=== PATIENT | male | born 1995 | race Caucasian/White ===

== ENCOUNTER 2024-09-26 18:33 | Emergency (ER) | payer MEDICAID, SELFPAY ==
[2024-09-26 18:34] VITALS: BP 138/87; PULSE 94; RESP 12; TEMP 36.9; O2SAT 97
--- NOTE | 2024-09-26 20:52 | ED.GENADUL_ITS ---
Discharge Plan Disposition Patient Disposition: Home Condition: Stable Discharge Details Clinical Impression: Skin breakdown Primary Care Provider: Unknown,Unknown ED Provider: Vonnie Galvez Home Meds and New Rx's Prescriptions: No Action No Known Home Meds Discharge Instructions Instructions: Pressure sores Additional Instructions: * Continue the barrier cream as provided. * Keep area dry as possible by utilizing things like Goldbond powder Discharge Data Discharge Date/Time-TO BE ENTERED AT DEPARTURE: 09/26/24 19:37 HPI General Date/Time Provider Initiated Documentation: 09/26/24 19:30 . Limitations to Documentation: no limitations . Information obtained by: patient . HPI Narrative: 29-year-old gentleman without significant past medical history presents for evaluation of 1 week of cysts skin issue on his left butt cheek. He thinks that it might be infected. He states it has been draining clear fluid. It hurts a little bit. He denies history of skin infections. Related Data Home Medications ?Medication ?Instructions ?Recorded ?Confirmed Unknown [No Known Home Meds] 09/26/24 09/26/24 Allergies Allergy/AdvReac Type Severity Reaction Status Date / Time Sulfa (Sulfonamide AdvReac Intermediate Skin Rash Verified 09/26/24 18:37 Antibiotics) General Stated Complaint: RashLesion GAYLE: 4 Exam Narrative Exam Narrative: Review of Systems: All systems reviewed & are unremarkable except as noted in HPI and below Well-developed, no acute distress NCAT left gluteal cheek with contact lesion, where skin of glut and thigh rub together, no abscess or induration, no cellulitis Course Vital Signs Vital signs: Vital Signs Temperature 36.9 C 09/26/24 18:34 Pulse 94 H 09/26/24 18:34 Respiratory Rate 12 09/26/24 18:34 Blood Pressure 138/87 09/26/24 18:34 Pulse Oximetry 97 09/26/24 18:34 Temperature 36.9 C 09/26/24 18:34 Pulse 94 H 09/26/24 18:34 Respiratory Rate 12 11/05/24 18:34 Respiratory Effort Normal 09/26/24 19:17 Blood Pressure 138/87 09/26/24 18:34 Blood Pressure Position Sitting 09/26/24 18:34 Pulse Oximetry 97 09/26/24 18:34 Oxygen Delivery Method Room Air 09/26/24 18:34 Oxygen Flow Rate 0 09/26/24 18:34 Pain Level 10 09/26/24 18:34 Medical Decision Making Evaluation of skin lesion. On examination, there are no signs of abscess or cellulitis, this lesion appears more consistent with some skin breakdown from contact or moisture. I am recommending good hygiene and barrier cream which she was provided. Recommend to make sure that this area stays dry and that he does not scratch or pick at the area. He can use Goldbond powder. If he develops any redness pain fever, he should get reevaluated but at this time there is no signs of infection Quality:SDOH Health Related Social Needs: No Data to Display PFSH All Active Problems Skin breakdown (Acute) Social History Smoking/Tobacco Use Status: Current-Occasional Tobacco Type: cigarettes and e- cigarettes Smoking risk assessment performed?: Yes Alcohol Intake: never Drug use: Daily Substance use type: marijuana Housing: house Do you feel safe at home: Yes Do you feel safe in your relationship?: Yes
== END 2024-09-26 19:37 | disposition home or self-care (01) ==
LOC: ER 19:43
PROVIDERS: Emergency Provider Emergency Medicine
DX: M79.9 Soft tissue disorder, unspecified (principal); F17.210 Nicotine dependence, cigarettes, uncomplicated; F17.290 Nicotine dependence, other tobacco product, uncomplicated
CPT/HCPCS: 99283

== ENCOUNTER 2024-10-10 19:31 | Emergency (ER) | payer MEDICAID, SELFPAY ==
[2024-10-10 19:38] VITALS: BP 158/98; PULSE 96; RESP 18; TEMP 36.4; O2SAT 99
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
[2024-10-10] MEDS: Lidocaine 5% Patch 1 PATCH TP (20:35)
[2024-10-10] MEDS: Acetaminophen 500 MG TAB 1000 MG PO (20:35)
[2024-10-10] MEDS: Cyclobenzaprine 10 MG TAB PO (20:35)
[2024-10-10] MEDS: Ketorolac 10 MG TAB PO (20:35)
== END 2024-10-10 20:41 | disposition home or self-care (01) ==
PROVIDERS: Emergency Provider Physician Assistant
DX: M54.50 Low back pain, unspecified (principal); E11.9 Type 2 diabetes mellitus without complications; I10 Essential (primary) hypertension; F17.210 Nicotine dependence, cigarettes, uncomplicated; F17.290 Nicotine dependence, other tobacco product, uncomplicated; Z79.84 Long term (current) use of oral hypoglycemic drugs
CPT/HCPCS: 99283

== ENCOUNTER 2024-12-06 00:10 | Emergency (ER) | payer MEDICAID, SELFPAY ==
[2024-12-06 00:14] VITALS: BP 156/96; PULSE 67; RESP 16; TEMP 36.2; O2SAT 98
--- NOTE | 2024-12-06 01:21 | ED.GENADUL_ITS ---
Discharge Plan Disposition Patient Disposition: Home Condition: Good Discharge Details Clinical Impression: Abscess of neck Primary Care Provider: Unknown,Unknown ED Provider: Gordon Estes Home Meds and New Rx's Prescriptions: New clindamycin HCl 150 mg capsule 450 mg PO Q6H 7 Days Qty: 84 0RF Discharge Instructions Instructions: Skin Abscess Additional Instructions: At this time you have a small abscess on the back of your neck. We were able to get out a significant amount of fluid. Please take the antibiotic as directed. The full prescription has been sent to your pharmacy on file. Please make sure to be taking this with a probiotic to help reduce the risk of diarrhea. If you notice any worsening of your symptoms, or any new symptoms such as vomiting, little rrhea, fever, chills, shortness of breath, chest pain, numbness, weakness, or fainting , please return immediately to the emergency department for reevaluation. Please follow up with your primary care provider as soon as possible for reassessment and reevaluation. As always, it was a pleasure participating in your medical care today. HPI General Date/Time Provider Initiated Documentation: 12/06/24 00:15 . HPI Narrative: 29-year-old male presents today for lesion on his neck. States it has been present for the last few days, it is mildly tender and painful. No drainage. He denies fever or chills. He denies headache numbness tingling or weakness. Lesion is on the posterior aspect of his neck, he states that he has had zits like this before that if needed to be drained. No other modifying factors or complaints. Related Data Home Medications ?Medication ?Instructions ?Recorded ?Confirmed clindamycin HCl 150 mg capsule 450 mg (3 x 150 mg) PO Q6H 7 days 12/06/24 #84 caps Previous Rx's ?Medication ?Instructions ?Recorded clindamycin HCl 150 mg capsule 450 mg (3 x 150 mg) PO Q6H 7 days 12/06/24 #84 caps Allergies Allergy/AdvReac Type Severity Reaction Status Date / Time Sulfa (Sulfonamide AdvReac Intermediate Skin Rash Verified 12/06/24 00:13 Antibiotics) General Stated Complaint: RashLesion GAYLE: 4 Exam Narrative Exam Narrative: 1.Const: Well-nourished, Well-developed, appearing stated age 2.Eyes: PERRL, no conjunctival injection, and symmetrical lids. 3.ENT: Atraumatic external nose and ears. Moist MM. Neck: Symmetric, trachea midline, No thyromegaly. 4.CVS: +S1/S2, Peripheral pulses 2+ and equal in all extremities. Brisk capillary refill in all extremities. 5.RESP: Unlabored respiratory effort. Clear to auscultation bilaterally. No wheezes rales or rhonchi 6.GI: Soft, Nontender/Nondistended, No hepatosplenomegaly. No guarding or rebound. 7.MSK: Normocephalic/Atraumatic, Extremities w/o deformity or ttp No cyanosis or clubbing, Normal movement of all extremities 8.Skin: Warm, Dry. Small comedone is noted on the patient's neck, fluctuance is noted at the top. Small apical head is noted. Diameter is roughly 1-1/2 cm. Minimal erythema for the lesion itself. 9.Neuro: preparatory technician II-XII grossly intact. Sensation grossly intact, no focal neurologic deficits. 10.Psych: (AAO) x3. Appropriate mood and affect Course Vital Signs Vital signs: Vital Signs Temperature 36.2 C L 12/06/24 00:14 Pulse 67 12/06/24 00:14 Respiratory Rate 16 12/06/24 00:14 Blood Pressure 156/96 H 12/06/24 00:14 Pulse Oximetry 98 12/06/24 00:14 Temperature 36.2 C L 12/06/24 00:14 Temperature Source Temporal Artery Scan 12/06/24 00:14 Pulse 67 12/06/24 00:14 Respiratory Rate 16 12/06/24 00:14 Blood Pressure 156/96 H 12/06/24 00:14 Blood Pressure Position Sitting 12/06/24 00:14 Pulse Oximetry 98 12/06/24 00:14 Oxygen Delivery Method Room Air 12/06/24 00:14 Oxygen Flow Rate 0 12/06/24 00:14 Pain Level 4 12/06/24 00:14 Procedure Abscess Drainage Date of Procedure: 12/06/24 Time of Procedure: 01:54 Provider that performed the procedure: Gordon Bustillo Time Out Performed: Yes Patient Consented: Verbally Location of Exam: Neck/left side (Midline) Indication: Abscess. Local anesthetic: Lidocaine 2%, Amount of Local Anesthetic Used (mL): 4. Sterility: Non Sterile. Procedure Prep: Hand hygiene and Other (18-gauge needle). Technique used, needle aspiration. Amount of fluid expressed(mL): 4. Irrigation: no irrigation Packing: None. Outcome: Sucessful. Medical Decision Making 29-year-old male presents today for lesion on his neck. States it has been present for the last few days, it is mildly tender and painful. No drainage. He denies fever or chills. He denies headache numbness tingling or weakness. Lesion is on the posterior aspect of his neck, he states that he has had zits like this before that if needed to be drained. No other modifying factors or complaints. Physical exam demonstrates a small abscess on the posterior aspect of the neck. No surrounding cellulitis. Area was covered with LMX and then de removed with 18-gauge needle. About 4 cc of purulent fluid were removed. This has been sent for culture. He is given a bottle of clindamycin here and a prescription for home. Discussed red flags for which to return. I have extensively reviewed the treatment plan and discharge instructions with the patient. I have addressed all patient concerns at this time. The patient was made aware of what symptoms to monitor for that would warrant a return to the emergency department. Discussed the plan with the patient, they demonstrate verbal understanding and agreement with our assessment and plan at this time. The documentation in this chart was dictated using [employer] dictation software. Please excuse any dictation errors. Quality:SDOH Health Related Social Needs: No Data to Display PFSH All Active Problems (Updated 12/06/24 @ 01:21 by Gordon Estes DO) Abscess of neck (Acute) Medical History (Updated 12/06/24 @ 01:21 by Gordon Estes DO) Skin mole Hyperlipidemia Type 2 diabetes mellitus Hypertension Surgical History (Updated 10/10/24 @ 19:51 by Hema Carcamo RN) History of esophagogastroduodenoscopy (EGD) History of tonsillectomy and adenoidectomy Social History Smoking/Tobacco Use Status: Current-Occasional Tobacco Type: cigarettes and e- cigarettes Smoking risk assessment performed?: Yes Alcohol Intake: former Drug use: Daily Substance use type: marijuana Housing: house Do you feel safe at home: Yes Do you feel safe in your relationship?: Yes POCUS Exam (ED) Limited Soft Tissue Exam PROVIDER THAT PERFORMED THE STUDY: Gordon Estes
[2024-12-06] MEDS: Clindamycin 150 MG CAP, 12 CAPS/BTL 450 MG PO (01:38)
--- NOTE | 2024-12-07 09:35 | NUR.NOTE ---
Accessed Pt chart to document antibiotics prescribed to Pt for the specimen document
== END 2024-12-06 01:45 | disposition home or self-care (01) ==
PROVIDERS: Emergency Provider Student in an Organized Health Care Education/Training Program
DX: L02.11 Cutaneous abscess of neck (principal); E78.5 Hyperlipidemia, unspecified; E11.9 Type 2 diabetes mellitus without complications; I10 Essential (primary) hypertension; F17.210 Nicotine dependence, cigarettes, uncomplicated; F17.290 Nicotine dependence, other tobacco product, uncomplicated
CPT/HCPCS: 10060; 87077; 99283; 99284; 87070; 87186; 87205

== ENCOUNTER 2025-02-06 21:40 | Outpatient (REF) | payer MEDICAID, SELFPAY ==
[2025-02-06 22:08] LABS: Abs Immature Grans 0.02 10^3/uL (0.0-0.06); Absolute Basophil Count 0.06 10^3/uL (0.0-0.2); Absolute Eosinophil Count 0.29 10^3/uL (0.0-0.7); Absolute Monocyte Count 0.69 10^3/uL (0.1-0.8); Absolute Neutrophil Count 5.06 10^3/uL (1.2-6.7); Basophils % 0.7 %; Eosinophils % 3.3 %; HCT 47.9 % (40.0-50.0); HGB 16.4 g/dL (13.5-17.5); Immature Grans % 0.2 %; Lymphocytes % 31.4 %; MCH 29.4 pg (27.0-33.0); MCHC 34.2 % (32.0-36.0); MCV 86 fL (80-95); MPV 11.6 fL (8.0-11.0); Monocytes % 7.7 %; Neutrophils % 56.7 %; Platelet Count 225 10^3/uL (130-400); RBC 5.57 10^6/uL (4.36-5.78); RDW 11.7 % (11.8-14.1); RDW-SD 36.6 fL; WBC 8.92 10^3/uL (4.4-10.8)
[2025-02-06 22:19] LABS: ALT 34 U/L (16-63); AST 10 U/L (15-37); Alkaline Phosphatase 87 U/L (46-116); Anion Gap 9.3 mmol/L (3-11); BUN 15 mg/dL (7-18); Bilirubin, Total 0.6 mg/dL (0.2-1.0); CO2 28.7 mmol/L (21.0-32.0); CREATININE 0.8 mg/dL (0.70-1.30); Calcium 9.5 mg/dL (8.5-10.1); Chloride 104 mmol/L (98-107); Estimated GFR 121.34 (mL/min/1.73m2); Glucose 281 mg/dL (74-106); Lipase 31 U/L (<78); Potassium 4.2 mmol/L (3.5-5.1); Sodium 142 mmol/L (136-145); Total Protein 7.5 g/dL (6.4-8.2)
[2025-02-06 22:28] LABS: Hemoglobin A1C 9.5 % (<5.7)
== END 2025-02-06 21:41 | disposition home or self-care (01) ==
LOC: LBN 21:40
PROVIDERS: Visit Provider Nurse Practitioner Family
DX: R10.9 Unspecified abdominal pain (principal); E11.9 Type 2 diabetes mellitus without complications
CPT/HCPCS: 80053; 83690; 83036; 85025

== ENCOUNTER 2025-04-09 18:21 | Outpatient (REF) | payer MEDICAID, SELFPAY ==
[2025-04-09 17:46] LABS: Calculated LDL 120 mg/dL (<100); Cholesterol 214 mg/dL (<200); HDL Cholesterol 36 mg/dL (>or=40); Triglyceride 290 mg/dL (<150)
== END 2025-04-09 18:22 | disposition home or self-care (01) ==
LOC: NCHCN 18:21
PROVIDERS: Visit Provider Nurse Practitioner Family
DX: E78.00 Pure hypercholesterolemia, unspecified (principal)
CPT/HCPCS: 80061

== ENCOUNTER 2025-05-11 15:10 | Outpatient (REF) | payer MEDICAID, SELFPAY ==
[2025-05-11 16:38] LABS: COMMENT (LAB VIEW ONLY) 142.11 mg/dL; Microalb ug/mg Crea 56.9 ug/mg Cr
[2025-05-14 09:23] LABS: HIV-1/2 Ag & Ab Screen Negative (Negative)
[2025-05-14 09:29] LABS: Hepatitis C Ab w Rflx HCV PCR Negative (Negative)
[2025-05-14 10:57] LABS: Syphilis Serology (RPR) Negative (Negative)
[2025-05-14 11:39] LABS: Chlamydia Result Negative (Negative); GC Result Negative (Negative)
== END 2025-05-11 15:11 | disposition home or self-care (01) ==
LOC: NCHCN 15:10
PROVIDERS: PCP Nurse Practitioner Family; Visit Provider Nurse Practitioner Family
DX: E11.9 Type 2 diabetes mellitus without complications (principal); Z11.3 Encounter for screening for infections with a predominantly sexual mode of transmission
CPT/HCPCS: 86803; 87389; 87491; 87591; 82043; 82570; 86592

== ENCOUNTER 2025-05-17 19:54 | Emergency (ER) | payer MEDICAID, SELFPAY ==
[2025-05-17 19:56] VITALS: BP 147/92; PULSE 84; RESP 16
--- NOTE | 2025-05-17 20:00 | DI.RAD_ITS ---
Exam(s) XR HAND RT COMPLETE EXAM: XR HAND RT COMPLETE CLINICAL HISTORY: finger injury. TECHNIQUE: 2D digital imaging was performed of the right hand. Three images were obtained. AP, lateral and oblique views were obtained. COMPARISON: No exams were available for comparison FINDINGS: BONES: No acute fracture is present. No bony destructive lesion is seen. JOINTS: No dislocation present. There is flexion of the PIP joint of the right little finger. This may reflect ligamentous injury. Please correlate with the patient's history and clinical exam. If this is an acute process, MRI may be considered for further evaluation. SOFT TISSUE: Normal. IMPRESSION: 1. No acute fracture or dislocation. 2. There is flexion of the PIP joint of the right little finger. Please evaluate the chronicity of this finding. If this is an acute injury, MRI may be considered for further characterization. 3. The preliminary [facility] report was reviewed. DATA REPOSITORY: RADIATION DOSE DELIVERED:
[2025-05-17] MEDS: Ibuprofen 600 MG TAB PO (20:16)
[2025-05-17 21:16] VITALS: BP 145/90; PULSE 80; RESP 16; O2SAT 100
--- NOTE | 2025-05-17 21:25 | DI.[facility]_ITS ---
PROCEDURE INFORMATION: Exam: XR Right Hand Exam date and time: 05/17/2025 8:29 PM Age: 30 years old Clinical indication: Pain; Hand; Right TECHNIQUE: Imaging protocol: Radiologic exam of the right hand. Views: 3 or more views. COMPARISON: No relevant prior studies available. FINDINGS: Bones/joints: No prior studies for comparison. No acute fracture or dislocation identified. The carpal bones are intact. The metacarpal bones are intact. There is a flexion deformity of the proximal interphalangeal joint of the 5th finger likely representing a chronic contracture. No periosteal reactions or bony destruction of the phalanges. Soft tissues: No soft tissue gas or foreign bodies. IMPRESSION: 1. No acute fracture or dislocation. 2. Flexion deformity of the proximal interphalangeal joint of the 5th finger likely representing a chronic contracture. Clinical correlation is needed. Dictated and Authenticated by: Rocky Marcum MD. Orderin Leonor Brown MD
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
== END 2025-05-17 21:16 | disposition home or self-care (01) ==
PROVIDERS: Emergency Provider Emergency Medicine; PCP Nurse Practitioner Family
DX: S60.032A Contusion of left middle finger without damage to nail, initial encounter (principal); I10 Essential (primary) hypertension; E78.5 Hyperlipidemia, unspecified; E11.9 Type 2 diabetes mellitus without complications; F17.210 Nicotine dependence, cigarettes, uncomplicated; F17.290 Nicotine dependence, other tobacco product, uncomplicated; Z79.84 Long term (current) use of oral hypoglycemic drugs
CPT/HCPCS: 99283; 73130

== ENCOUNTER 2025-07-13 17:36 | Outpatient (REF) | payer MEDICAID, SELFPAY ==
[2025-07-13 16:29] LABS: COMMENT (LAB VIEW ONLY) 83.30 mg/dL; Microalb ug/mg Crea 28.7 ug/mg Cr
== END 2025-07-13 17:37 | disposition home or self-care (01) ==
LOC: NCHCN 17:36
PROVIDERS: PCP Nurse Practitioner Family; Visit Provider Nurse Practitioner Family
DX: E11.29 Type 2 diabetes mellitus with other diabetic kidney complication (principal)
CPT/HCPCS: 82043; 82570

== ENCOUNTER 2025-08-01 17:44 | Emergency (ER) | payer MEDICAID, SELFPAY ==
[2025-08-01 17:45] VITALS: BP 145/87; PULSE 73; RESP 12; TEMP 36.9; O2SAT 98
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
--- NOTE | 2025-08-01 18:10 | ED.GENADUL_ITS ---
Discharge Plan Disposition Patient Disposition: Home Condition: Stable Discharge Details Clinical Impression: Contusion of right hand Primary Care Provider: Annita Tompkins ED Provider: Kim Carpenter Home Meds and New Rx's Prescriptions: No Action lisinopril 2.5 mg tablet 2.5 mg PO DAILY Januvia 100 mg tablet 100 mg PO DAILY Discharge Instructions Instructions: Minor Contusion ED Additional Instructions: At this time x-ray shows no acute fracture or broken bone. It appears you may have injured an extensor tendon on your pinky finger in the past. Rest ice compression and elevation. You may wrap with Cole wrap if needed. Please take Tylenol or Ibuprofen with food every 4-6 hours as needed for pain and swelling. Follow up with primary care provider in 3-5 days. Return to ED sooner if any worsening or concerns. Referrals: Annita Tompkins [Primary Care Provider, Medicine] - Return if symptoms worsen Referral Note: Call for appt Discharge Data Discharge Date/Time-TO BE ENTERED AT DEPARTURE: 08/01/25 19:20 HPI General Mode of arrival: ambulatory . Date/Time Provider Initiated Documentation: 08/01/25 18:02 . Limitations to Documentation: no limitations . Information obtained by: patient, RN notes reviewed and old records reviewed . HPI Narrative: 17-year-old male presents to the ER after punching a friend for at approximately 11:00 this morning while they are messing around the house complaining of right middle finger knuckle pain. No obvious deformity, there is some tenderness with palpation. Distal CMS is intact. He reports increased pain after lifting some stools or doing some aggravated when he is. No other associated symptoms or complaints at this time. Related Data Home Medications ?Medication ?Instructions ?Recorded ?Confirmed lisinopril 2.5 mg tablet 2.5 mg PO DAILY 05/17/2509/15 sitagliptin phosphate 100 mg 100 mg PO DAILY 05/17/25 08/01/25 tablet (Januvia) Allergies Allergy/AdvReac Type Severity Reaction Status Date / Time Sulfa (Sulfonamide AdvReac Intermediate Skin Rash Verified 08/01/25 17:47 Antibiotics) General Stated Complaint: Orthopedic GAYLE: 4 Review of Systems Musculoskeletal Musculoskeletal: Reports as per HPI and Reports arthralgias Exam Extrem General: normal to inspection Right upper extremity: normal to inspection and hand Details: normal to inspection, neuromotor exam normal, neurosensory exam normal and tenderness Location: of the 3rd digit Location: at the MCP joint Left upper extremity: normal to inspection Course Vital Signs Vital signs: Vital Signs Temperature 36.9 C 08/01/25 17:45 Pulse 73 08/01/25 17:45 Respiratory Rate 12 08/01/25 17:45 Blood Pressure 145/87 H 08/01/25 17:45 Pulse Oximetry 98 08/01/25 17:45 Temperature 36.9 C 08/01/25 17:45 Temperature Source Oral 08/01/25 17:45 Pulse 73 08/01/25 17:45 Respiratory Rate 12 08/01/25 17:45 Blood Pressure 145/87 H 08/01/25 17:45 Blood Pressure Position Sitting 08/01/25 17:45 Pulse Oximetry 98 08/01/25 17:45 Oxygen Delivery Method Room Air 08/01/25 17:45 Oxygen Flow Rate 0 08/01/25 17:45 Medical Decision Making 17-year-old male presents to the ER after punching a friend for at approximately 11:00 this morning while they are messing around the house complaining of right middle finger knuckle pain. No obvious deformity, there is some tenderness with palpation. Distal CMS is intact. He reports increased pain after lifting some stools or doing some aggravated when he is. No other associated symptoms or complaints at this time. X-ray ordered. No evidence of acute fracture, to the middle or patient is having tenderness. There is possible injury of the extensor tendon on his fifth digit however that is not acute. Patient has full range of motion to his thumb and first 2nd and 3rd and 4th digits. No significant deformity or swelling. Suspect contusion. Given discharge instructions and strict return instructions. Follow-up care. Instructed to rest ice compression elevation. This text was generated using [employer] system, please disregard any oddities of phrase or misspellings. PFSH All Active Problems (Updated 08/01/25 @ 19:08 by Kim Carpenter NP) Contusion of right hand (Acute) Medical History (Updated 08/01/25 @ 19:08 by Kim Carpenter NP) Skin mole Hyperlipidemia Type 2 diabetes mellitus Hypertension Surgical History (Updated 10/10/24 @ 19:51 by Hema Carcamo RN) History of esophagogastroduodenoscopy (EGD) History of tonsillectomy and adenoidectomy Social History Smoking/Tobacco Use Status: Current-Occasional Tobacco Type: cigarettes and e- cigarettes Smoking risk assessment performed?: Yes Alcohol Intake: former Drug use: Daily Substance use type: marijuana Housing: house Do you feel safe at home: Yes Do you feel safe in your relationship?: Yes
== END 2025-08-01 19:20 | disposition home or self-care (01) ==
PROVIDERS: Emergency Provider Registered Nurse Emergency; PCP Nurse Practitioner Family
DX: S60.221A Contusion of right hand, initial encounter (principal); X58.XXXA Exposure to other specified factors, initial encounter
CPT/HCPCS: 99283 ×2; 73130

== ENCOUNTER 2025-09-10 14:26 | Emergency (ER) | payer MEDICAID, SELFPAY ==
[2025-09-10 14:27] VITALS: BP 142/80; PULSE 85; RESP 18; TEMP 36.8; O2SAT 97
== END 2025-09-10 15:07 | disposition left against medical advice (07) ==
LOC: ER 14:32
PROVIDERS: PCP Nurse Practitioner Family
DX: Z53.21 Procedure and treatment not carried out due to patient leaving prior to being seen by health care provider (principal)